=== PATIENT | female | born 1960 | race Caucasian/White ===

== ENCOUNTER 2017-03-15 20:52 | Emergency (ER) | payer OTHER ==
[2017-03-15 21:08] VITALS: BP 153/89
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
--- OUTSIDE RECORDS SUMMARY | 2017-03-15 21:23 | XMS REPORT | Continuity of Care Document ---
:1960 Author Organization [facility] ([facility]) Address [address] [place] [address] Phone [phone] Care Team Providers Name Role Phone Venkat Butt Primary Care Provider [phone] Source Comments This disclosure is being made pursuant to the Care Everywhere program, applicable federal and state laws, and may not contain all informaitonavailable regarding this patient.[facility] ([facility]) Active Allergies and Adverse Reactions Allergen Noted Date Severity Reactions Comments Codeine 07/18/2011 Nausea & Vomiting Diphenhydramine Hcl 07/18/2011 Unknown Erythromycin 07/18/2011 Rash Morphine 07/18/2011 Nausea & Vomiting Penicillin G 07/18/2011 Rash Sulfa (Sulfonamide Antibiotics) 07/18/2011 Unknown Current Medications Prescription Sig. Disp. Refills Start Date End Date Status cyclobenzaprine Take 5 mg by mouth Active (FLEXERIL) 5 mg tablet 3 times daily. albuterol (VENTOLIN HFA) Use 2 Puffs by Active 90 mcg/Actuation inhaler inhalation every 6 hours as needed. LORATADINE/PSEUDOEPHEDRIN Take 1 Tab by mouth Active E SUL (CLARITIN-D 24 HOUR daily. PO) Active Problems Problem Noted Date Asthma 08/11/2011 Hematuria 08/11/2011 Social History Tobacco Use Types Packs/Day Years Used Date Never Smoker Smokeless Tobacco: Never Used Alcohol Use Drinks/Week oz/Week Comments No Last Filed Vital Signs Vital Sign Reading Time Taken Blood Pressure 131/78 08/11/2011 4:06 PM CDT Pulse 84 08/11/2011 4:06 PM CDT Temperature 36.8 C (98.2 F) 08/11/2011 4:06 PM CDT Respiratory Rate 16 08/11/2011 4:06 PM CDT Height - - Weight 62.143 kg (137 lb) 08/11/2011 4:06 PM CDT Body Mass Index - - Oxygen Saturation - - Plan of Care Health Maintenance Due Date Last Done Comments HCV Screening 1960 Hepatitis B Vaccine (1 of 3 - Primary Series) 1960 Tdap Vaccine 1969 Lipid Disorder Screening 1976 MMR Vaccine 1976 Td Vaccine 1976 Pneumococcal Vaccine (1 of 1 - PPSV23) 1977 Cervical Cancer Screening 1988 Mammogram 1998 Colonoscopy 04/23/2008 Influenza Vaccine: Seasonal (#1) 06/26/2016 Results from Last 3 Months Not on file
[2017-03-15] MEDS ORDERED: DOXYCYCLINE HYCLATE 100 MG TABLET PO ONE (23:05)
[2017-03-15] MEDS ORDERED: DOXYCYCLINE HYCLATE 100 MG TABLET ONE (23:12)
== END 2017-03-15 23:21 | disposition home or self-care (01) ==
LOC: ER 20:52
PROC: 0H9FXZZ Drainage of Right Hand Skin, External Approach (ICD-10-PCS; principal; 2017-03-15)
DX: L03.011 Cellulitis of right finger (principal)